=== PATIENT | female | born 1995 ===

== ENCOUNTER 2018-05-06 18:50 | Emergency (ER) | payer MEDICAID, OTHER ==
[2018-05-06 19:19] VITALS: TEMP 98.4
--- NOTE | 2018-05-06 19:56 | ED PDOC ---
Lower Extremity Pain/Injury Time Seen by Provider: 05/06/18 19:20 Chief Complaint (Nursing): Lower Extremity Problem/Injury Chief Complaint (Provider): Lower Extremity Problem/Injury History Per: Patient History/Exam Limitations: no limitations Onset/Duration Of Symptoms: Days Current Symptoms Are (Timing): Still Present Pain Scale Rating Of: 6 Additional Complaint(s): Brenda Aragon is a 23 year old female with no significant past medical history who is presenting to the ED for evaluation of worsening left knee pain ongoing for one week. At the onset of symptoms, patient states that she twisted knee playing basketball and also admits that 2 years ago, had ACL and meniscus repair to same knee. She reports that she has been taking over the counter medications and applying ice with no relief and denies taking any medications today. Patient describes the pain as a stabbing sensation that is non-radiating and a 6/10. She denies any trauma or other injury. PMD: [facility]: Dr. Mesa [place] LMP: present - Knee Description Of Injury: Twisted Past Medical History Reviewed: Historical Data, Nursing Documentation, Vital Signs Vital Signs: Last Vital Signs Temp 98.4 F 05/06/18 19:17 Pulse 65 05/06/18 19:17 Resp 14 05/06/18 19:17 BP 121/71 05/06/18 19:17 Pulse Ox 99 05/06/18 19:17 - Medical History PMH: No Chronic Diseases - Surgical History Other surgeries: ACL and meniscus repair to bilateral knees - Family History Family History: States: Unknown Family Hx - Social History Current smoker - smoking cessation education provided: No Alcohol: None Drugs: Denies - Home Medications Home Medications: Ambulatory Orders Medication Instructions Recorded RX: Ibuprofen 600 mg PO Q6 PRN #15 tab 11/29/13 Dicyclomine [Bentyl] 20 mg PO Q12 PRN #20 tab 04/26/16 Acetaminophen [Acetaminophen 8 650 mg PO Q8 PRN #21 tablet.er 05/06/18 Hour] RX: Naproxen 500 mg PO BID PRN #20 tab 05/06/18 - Allergies Allergies/Adverse Reactions: Allergies Allergy/AdvReac Type Severity Reaction Status Date / Time No Known Allergies Allergy Verified 05/06/18 19:16 Review of Systems ROS Statement: Except As Marked, All Systems Reviewed And Found Negative Musculoskeletal: Positive for: Leg Pain Neurological: Negative for: Weakness, Numbness Physical Exam - Reviewed Nursing Documentation Reviewed: Yes Vital Signs Reviewed: Yes - Physical Exam Comments: GENERAL APPEARANCE: Patient is awake, alert, oriented x 3, in no acute distress. SKIN: Warm, dry; (-) cyanosis. ENMT: Mucous membranes are moist. Airway patent: (-) stridor. NECK: Supple, FROM CHEST AND RESPIRATORY: (-) wheezing; (-) rales, (-) rhonchi; breath sounds equal bilaterally. Respirations even and nonlabored. HEART AND CARDIOVASCULAR: (-) irregularity EXTREMITY: (+) healed surgical incisions to anterior left knee, full ROM with pain on flexion, (-) deformity, (+) tenderness to medial and anterior aspect of knee (+) small effusion (-) crepitus (-) ecchymosis (-) skin break (-) erythema (-) calf tenderness. (+) Achilles intact, non-tender. Full ROM to remainder of lower extremity. (+) distal pulses and sensation intact NEURO AND PSYCH: Mental status as above; (-) focal findings. Gait: limping. Speech: clear. - Laboratory Results Urine POC: Negative - ECG O2 Sat by Pulse Oximetry: 99 (RA) Pulse Ox Interpretation: Normal Medical Decision Making Medical Decision Making: Time: 19:45 Impression: acute knee pain Plan: --X-Ray left knee --Toradol 30 mg IM --Re-evaluation --Upreg: negative 2200 XRs Reviewed, no acute fracture or dislocation (+) post-surgical changes as read by Prem SANTOYO Knee immobilizer and crutches ordered. Patient instructed on crutch walking by security installation sales technician. 2310 NV intact after knee immobilizer placement. RICE encouraged. On re-evaluation, patient reports improvement of symptoms. On exam, patient remains AAOx3, in no acute distress. Vitals stable. Lab/Diagnostic results d/w the patient in great detail. Diagnosis of acute knee pain/sprain, likely soft tissue injury d/w the patient. Based on history, exam and diagnostic results, plan will be for outpatient follow up with ortho. Patient instructed to follow-up with pmd / referral provided / the clinic in 1- 2 days without fail. Advised to take medication as prescribed. Return to the emergency room at any time for any new or worsening symptoms. Patient states she fully agrees with and understands discharge instructions. States that she agrees with the plan and disposition. Verbalized and repeated discharge instructions a nd plan. I have given the patient opportunity to ask any additional questions. Scribe Attestation: Documented by, Carmenza Gama acting as a scribe for Krystal Amaro PA-C. Provider Scribe Attestation: All medical record entries made by the Scribe were at my direction and personally dictated by me. I have reviewed the chart and agree that the record accurately reflects my personal performance of the history, physical exam, medical decision making, and the department course for this patient. I have also personally directed, reviewed, and agree with the discharge instructions and disposition. Disposition - Clinical Impression Clinical Impression: Acute knee pain, Knee sprain - Patient ED Disposition Is Patient to be Admitted: No Counseled Patient/Family Regarding: Studies Performed, Diagnosis, Need For Followup, Rx Given - Disposition Referrals: Bryan Wood MD [Medical Doctor] - Disposition: Routine/Home Disposition Time: 23:10 Condition: FAIR Additional Instructions: REST ICE ELEVATE The emergency medical care you received today was directed at your acute symptoms. If you were prescribed any medication, please fill it and take as directed. It may take several days for your symptoms to resolve. Return to the Emergency Department if your symptoms worsen, do not improve, or if you have any other problems. Please contact your doctor in 2 days for re-evaluation and follow up / or call one of the physicians/clinics you have been referred to that are listed on the Patient Visit Information form that is included in your discharge packet. Bring any paperwork you were given at discharge with you along with any medications you are taking to your follow up visit. Our treatment cannot replace ongoing medical care by a primary care provider (PCP) outside of the emergency department. Prescriptions: Acetaminophen [Acetaminophen 8 Hour] 650 mg PO Q8 PRN #21 tablet.er PRN Reason: Pain, Moderate (4-7) RX: Naproxen 500 mg PO BID PRN #20 tab PRN Reason: Pain, Moderate (4-7) Instructions: Knee Sprain (DC), Knee Pain (DC) Forms: [facility] ([place]), [facility] ED School/Work Excuse Print Language: LIBYAN - POA Present On Arrival: None
[2018-05-06 23:24] VITALS: BP 129/79; PULSE 53; RESP 16
--- NOTE | 2018-05-07 08:38 | RAD ---
Date of service: 05/06/2018 PROCEDURE: Left Knee Radiographs. HISTORY: Pain. COMPARISON: Left knee radiographs 05/17/2015. FINDINGS: BONES: No acute fracture or destructive bony lesion identified. JOINTS: No subluxation or dislocation identified. Bony changes at distal femur and proximal tibia identified suggesting prior ACL replacement including minimal orthopedic hardware at the lateral metaphysis distal left femur. JOINT EFFUSION: Trace suprapatellar bursa effusion noted. OTHER FINDINGS: None. IMPRESSION: No acute fracture or dislocation left knee. Trace suprapatellar bursa effusion noted. Bony changes compatible prior ACL replacement surgery.
[2018-05-08 22:06] VITALS: O2SAT 99
== END 2018-05-06 23:20 | disposition home or self-care (01) ==
LOC: H.ER 18:50
DX: S83.92XA Sprain of unspecified site of left knee, initial encounter (principal); X50.9XXA Other and unspecified overexertion or strenuous movements or postures, initial encounter; Y92.310 Basketball court as the place of occurrence of the external cause
CPT/HCPCS: 29530; 73562; 81025; 96372; 99285; J1885